=== PATIENT | female | born 1975 | race Two or more races ===

== ENCOUNTER → 2021-07-27 | Emergency (ER) | payer OTHER ==
[~2021-07-27] VITALS: Ht 160 cm; Wt 84.4 kg
[~2021-07-27] MED LIST: PERCOCET 5/3251 TAB PO; TAMS0.4C PO
== END | disposition left against medical advice (07) ==
LOC: ER 06:20
DX: R07.89 Other chest pain (principal); M25.512 Pain in left shoulder; M54.9 Dorsalgia, unspecified; Z20.822 Contact with and (suspected) exposure to COVID-19; Z91.013 Allergy to seafood